=== PATIENT | male | born 1960 | race Caucasian/White ===

== ENCOUNTER 2023-02-11 07:43 | Day surgery (SDC) | payer MEDICAID ==
[~2023-02-11] VITALS: Ht 180.3 cm; Wt 65.3 kg
[~2023-02-11 07:43] MED LIST: CEFAZOLIN SOD 2 GM in D5W 50 ML IV ONE
[2023-02-11 11:35] VITALS: O2SAT 98
[2023-02-11] MEDS ORDERED: METOCLOPRAMIDE HCL 10 MG/2 ML VIAL IVP PRN (12:15)
[2023-02-11] MEDS ORDERED: MIDAZOLAM HCL 2 MG/2 ML VIAL (VERSED) IVP PRN (12:15)
[2023-02-11] MEDS ORDERED: LR 1,000 ML IV SCH (12:15)
[2023-02-11] MEDS ORDERED: MEPERIDINE HCL/PF 25 MG/ML DISP.SYRIN IVP PRN (12:15)
[2023-02-11] MEDS ORDERED: HYDROmorphone 1 MG/ML INJ. CARTRIDGE IVP PRN ×2 (12:15)
[2023-02-11] MEDS ORDERED: LIDOCAINE 2%, 20 ML MDV ONE (13:20)
[2023-02-11] MEDS ORDERED: PROPOFOL 200MG/ 20ML VIAL (DIPRIVAN) IV ONE (13:20)
[2023-02-11] MEDS ORDERED: SEVOFLURANE 15 MIN GAS INH ONE (13:20)
[2023-02-11] MEDS ORDERED: ONDANSETRON HCL 4 MG/2 ML VIAL ONE (13:20)
[2023-02-11] MEDS ORDERED: NS IRRIG SOLN 1000 ML IR ONE (13:20)
[2023-02-11] MEDS ORDERED: BUPIVACAINE /PF 0.25% 30 ML VIAL INJ ONE (13:20)
[2023-02-11] MEDS ORDERED: fentaNYL CITRATE/PF 100 MCG/2 ML AMP ONE (13:20)
[2023-02-11] MEDS ORDERED: LR 1,000 ML IV.SOLN IV ONE (13:20)
[2023-02-11] MEDS ORDERED: LIDOCAINE/EPI 1% 1:100000 20 ML VIAL ONE (13:20)
[2023-02-11] MEDS ORDERED: MIDAZOLAM HCL 5 MG/ML VIAL (VERSED) IV ONE (13:20)
[2023-02-11 15:40] VITALS: BP_SYST 104; PULSE 67; RESP 17
== END 2023-02-11 15:16 | disposition home or self-care (01) ==
LOC: SDS 07:43 → SMU 07:48 → SDS 15:16
PROVIDERS: ATTEND Otolaryngology
DX: C44.222 Squamous cell carcinoma of skin of right ear and external auricular canal (principal); E78.5 Hyperlipidemia, unspecified; E11.49 Type 2 diabetes mellitus with other diabetic neurological complication; M54.50 Low back pain, unspecified; B02.8 Zoster with other complications; F17.210 Nicotine dependence, cigarettes, uncomplicated; Z79.899 Other long term (current) drug therapy
CPT/HCPCS: 11642; 12051; 82962; 88305; J0690; J7060; J3490; J2001; J2250; J3465; J2405; J2704; J3010; J7120